=== PATIENT | female | born 1990 | race American Indian/Alaskan Native ===

== ENCOUNTER 2020-02-19 23:28 | Emergency (ER) | payer OTHER ==
[2020-02-20] MEDS ORDERED: ACETAMINOPHEN 325 MG TAB ONE (00:55)
[2020-02-20 00:57] VITALS: BP 118/64
[2020-02-20] MEDS ORDERED: ACETAMINOPHEN 325 MG TAB PO ONE (01:23)
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
[2020-02-20] MEDS ORDERED: HYDROcodone/ACETAMINOPHEN 7.5-325MG TAB PO ONE (03:10)
[2020-02-20] MEDS ORDERED: IBUPROFEN 800 MG TAB PO ONE (03:10)
== END 2020-02-20 03:45 | disposition home or self-care (01) ==
LOC: ED 23:28
DX: S16.1XXA Strain of muscle, fascia and tendon at neck level, initial encounter (principal); S80.01XA Contusion of right knee, initial encounter; K21.9 Gastro-esophageal reflux disease without esophagitis; Z79.1 Long term (current) use of non-steroidal anti-inflammatories (NSAID); Z79.899 Other long term (current) drug therapy; S29.012A Strain of muscle and tendon of back wall of thorax, initial encounter; V49.49XA Driver injured in collision with other motor vehicles in traffic accident, initial encounter; Y93.89 Activity, other specified; Y92.410 Unspecified street and highway as the place of occurrence of the external cause; Y99.8 Other external cause status